=== PATIENT | male | born 1970 | race Caucasian/White ===

== ENCOUNTER 2017-06-08 01:33 | Emergency (ER) | payer OTHER ==
[2017-06-08 04:32] VITALS: BP 138/84
== END 2017-06-08 04:32 | disposition home or self-care (01) ==
LOC: ED 01:33
DX: F41.9 Anxiety disorder, unspecified (principal); F99 Mental disorder, not otherwise specified; E11.9 Type 2 diabetes mellitus without complications; I10 Essential (primary) hypertension; Z79.899 Other long term (current) drug therapy; Z79.84 Long term (current) use of oral hypoglycemic drugs; Z79.4 Long term (current) use of insulin